=== PATIENT | female | born 1995 | race Hispanic/Latino ===

== ENCOUNTER 2017-07-26 21:47 | Emergency (ER) | payer MEDICAID, SELFPAY ==
[2017-07-26] MEDS ORDERED: Fentanyl 100 MCG/2 ML VIAL ONE (22:10)
[2017-07-26 22:44] LABS: ALT (SGPT) 8 U/L (8-55); AST (SGOT) 11 U/L (5-34); Albumin 3.5 g/dL (3.5-5.0); Alkaline Phosphatase 71 U/L (40-150); Anion Gap 14 mmol/L (10-20); BUN (Urea Nitrogen) 7 mg/dL (7.0-18.7); Bilirubin, Total Less than 0.2 mg/dL (0.2-1.2); Calc. Creatinine Clearance 0 mL/min (70-130); Calcium 8.5 mg/dL (7.8-10.44); Carbon Dioxide 21 mmol/L (22-29); Chloride 106 mmol/L (98-107); Estimated GFR-MDRD Greater than 90; Globulin 3.7 g/dL (2.4-3.5); Glucose 89 mg/dL (70-105); Potassium 3.6 mmol/L (3.5-5.1); Protein, Total 7.2 g/dL (6.0-8.3); Sodium 137 mmol/L (136-145)
[2017-07-26 22:53] LABS: Red Blood Cell (RBC) Count 3.75 mill/uL (4.20-5.40); White Blood Cell (WBC) Count 10.1 thou/uL (4.8-10.8)
[2017-07-26 22:54] LABS: Hemoglobin 5.6 g/dL (12.0-16.0)
[2017-07-26 22:55] LABS: Mean Corpuscular HGB CONC 28.9 g/dL (32.0-36.0); Mean Platelet Volume 6.5 fL (7.4-10.4); Platelet Count 335 thou/uL (130-400); RBC Distribution Width 14.2 % (11.5-14.5)
[2017-07-26 22:56] LABS: #Basophils 0.1 thou/uL (0.0-0.2); #Eosinphils 0.1 thou/uL (0.0-0.7); #Lymphocytes 2.9 thou/uL (1.20-3.40); #Monocytes 0.6 thou/uL (0.11-0.59); #Neutrophils 6.4 thou/uL (1.40-6.50); %Basophils 0.8 % (0.0-1.0); %Eosinophils 0.9 % (0.0-10.0); %Lymphocytes 28.3 % (21.0-51.0); %Monocytes 6.4 % (0.0-10.0); %Neutrophils 63.5 % (42.0-75.0)
[2017-07-26 23:27] LABS: Hypochromia MODERATE=16-30 cells (100X) (0-5/hpf); Microcytosis MODERATE=15-30 cells (100X) (0-5/hpf); Ovalocytes MODERATE= 6-15 cells (100X) (0-1/hpf)
[2017-07-26 23:28] LABS: Polychromasia SLIGHT = 2-3 cells (100X) (0-2/hpf); Small Platelets SLIGHT; Tear Drops SLIGHT = 2-5 cells (100X) (0-1/hpf)
[2017-07-26 23:29] LABS: Anisocytosis SLIGHT = 6-15 cells (100X) (0-5/hpf)
== END 2017-07-26 22:53 | disposition short-term general hospital (02) ==
LOC: BURERS 21:47
DX: O03.4 Incomplete spontaneous abortion without complication (principal)
CPT/HCPCS: 80053; 85025; 86900; 86901; 96374; J3010